=== PATIENT | female | born 1995 | race Caucasian/White ===

== ENCOUNTER 2024-10-11 19:58 | Emergency (ER) | payer BC, SELFPAY ==
--- NOTE | 2024-10-11 21:21 | RAD REPORT ---
EXAM: OB Limited HISTORY: Abd cramping, ;Vaginal bleeding COMPARISON: None TECHNIQUE: Multiple grayscale and color Doppler images were obtained in a transvaginal pelvic ultraso und. Spectral analysis of the Doppler waveforms of the ovaries were performed. FINDINGS: UTERUS: Single IUP identified transverse position. The placenta is anterior. Femur length measures 3 cm which is consistent with 19 week 2 day. Heart rate is measured at 1 40 bpm. The cervix is closed. Subjectively normal fluid. No free fluid is seen in the pelvis. RIGHT OVARY: Nonvisualized. LEFT OVARY: Nonvisualized. IMPRESSION: Single live intrauterine with estimated age of 19 week 2 day. Closed cervix.. S ubjectively normal fluid.
[2024-10-11 21:41] LABS: Absolute Eosinophils 0.1 K/uL (0-0.5); Absolute Lymphocytes (CBC) 2.2 K/uL (0.7-4.9); Absolute Monocytes 0.6 K/uL (0.1-1.3); Absolute Neutrophil 6.6 K/uL (1.8-8.0); Basophils % 0.4 % (0-1.3); Eosinophils % 0.9 % (0-4.4); Hemoglobin 11.8 g/dL (12.0-15.0); Lymphocytes % 22.9 % (15.3-44.8); MCH 31.7 pg (27.0-35.0); MCHC 35.9 g/dL (32.0-36.0); MCV 88.1 fL (80-100); MPV 7.3 fL (7.6-11.3); Monocytes % 6.3 % (3.3-12.3); Neutrophils % 69.5 % (41.7-73.7); Platelets 217 thou/uL (152-406); RBC Red Blood Cell Count 3.74 M/uL (3.86-4.86); Red Cell Distribution Width 12.9 % (12.1-15.2)
[2024-10-11 21:43] LABS: Specific Gravity 1.016 (1.005-1.030)
[2024-10-11 22:25] LABS: Anion Gap 10.3 mEq/L (5.0-15.0); Potassium 3.3 mEq/L (3.5-5.1)
[2024-10-11 22:40] LABS: Calcium Oxalate Crystals- Ur Few /HPF (None Seen); Specific Gravity 1.016 (1.005-1.030); Urine Bacteria <20 /HPF (<20); Urine Bilirubin NEGATIVE (Negative); Urine Blood 1+ (Negative); Urine Clarity Extremely Turbid (Clear); Urine Color Yellow (Yellow); Urine Culture Reflex Order REFLEXED; Urine Glucose NEGATIVE (Negative); Urine Ketones 1+ (Negative); Urine Microscopic Reflex YN ORDER UMIC; Urine Mucus 1+ /HPF (None Seen); Urine Nitrite NEGATIVE (Negative); Urine Protein NEGATIVE (Negative); Urine RBC 21-50 /HPF (None Seen); Urine Urobilinogen 1+ (Normal); Urine WBC None Seen /HPF (<5)
--- NOTE | 2024-10-11 22:48 | EDPHYS ---
Physician Documentation [facility] Name: Ilda Morris Age: 29 yrs Sex: Female : 1995 Arrival Date: 10/11/2024 Time: 19:58 Bed 16 Private MD: ED Physician Mor Patel HPI: 10/11 21:12 This 29 yrs old Female presents to ER via Ambulatory with complaints of EST 19 WKS sb4 GESTATION, SPOTTING VAGINALLY, Pelvic Pain. 21:13 The patient presents to the emergency department with abdominal pain, of the suprapubic sb4 area, that started today, described as crampy, vaginal bleeding, described as spotting. The estimated gestational age is 19 weeks. course: care: private OB physician, the patient's last check was October 07, 2024, Leakage of Fluid: none appreciated, Ultrasound: the patient had an ultrasound, which was normal, Risk/complications: no obvious risks or complications are appreciated. Previous pregnancies: in previous pregnancies patient has had , no complications. Associated signs and symptoms: The patient has no apparent associated signs or symptoms. The patient has not experienced similar symptoms in the past. The patient has not recently seen a physician. 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 - Infectious Disease History:: Denies. - Social history:: Smoking status: Patient denies any tobacco usage or history of. ROS: 21:13 Constitutional: Negative for fever, chills, and weight loss, sb4 21:13 : Positive for pelvic pain, vaginal bleeding, per HPI, 21:13 All other systems are negative, Exam: 21:13 Constitutional: This is a well developed, well nourished patient who is awake, alert, sb4 and in no acute distress. Head/Face: Normocephalic, atraumatic. Eyes: Extra-ocular motions intact. Periorbital areas with no swelling, redness, or edema. ENT: Mucous membranes moist. Cardiovascular: Regular rate and rhythm with a normal S1 and S2. Respiratory: No increased work of breathing, no retractions or nasal flaring. Abdomen/GI: Soft, non-tender, no distension. Skin: Warm, dry with normal turgor. Normal color with no rashes, no lesions, and no evidence of cellulitis. Vital Signs: 20:29 BP 110 / 78; Pulse 91; Resp 16; Temp 98.2; Pulse Ox 99% ; Weight 77.11 kg; Height 5 ft. dd2 5 in. ; Pain 6/10; 21:15 BP 103 / 68 LA (auto/reg); Pulse 82; Temp 98.6(O); Pulse Ox 100% on R/A; Weight 78.02 sa1 kg (M); Height 5 ft. 5 in. (R); 22:00 BP 110 / 65; Pulse 81; Resp 17; Pulse Ox 99% on R/A; Pain 0/10; rg5 21:15 Body Mass Index 28.62 (78.02 kg, 165.1 cm) sa1 20:29 Pain Scale: Adult dd2 22:00 Pain Scale: Adult rg5 MDM: 20:26 Medical Screening Exam initiated sb4 21:14 Differential diagnosis: threatened Ab, UTI. sb4 22:44 Data reviewed: vital signs, nurses notes, lab test result(s), radiologic studies, and sb4 as a result, I will discharge patient. Counseling: I had a detailed discussion with the patient and/or guardian regarding the historical points, exam findings, and any diagnostic results supporting the discharge/admit diagnosis, lab results, radiology results, the need for outpatient follow up, an OB/Gyne specialist, to return to the emergency department if symptoms worsen or persist or if there are any questions or concerns that arise at home. 10/11 20:32 Order name: Basic Metabolic Panel; Complete Time: 22:28 sb4 10/11 20:32 Order name: CBC with Diff; Complete Time: 21:43 sb4 10/11 20:32 Order name: Test, Urine; Complete Time: 21:49 sb4 10/11 20:32 Order name: Quantitative Hcg; Complete Time: 22:28 sb4 10/11 20:32 Order name: UA Rfx Kevin Cult if indicated; Complete Time: 22:41 sb4 10/11 22:44 Order name: Urine Culture EDMS 10/11 20:32 Order name: US OB Limited; Complete Time: 21:22 sb4 10/11 20:32 Order name: IV Saline Lock; Complete Time: 22:13 sb4 10/11 20:32 Order name: Labs collected and sent; Complete Time: 22:13 sb4 Administered Medications: No medications were administered Disposition: 10/12 04:50 Co-signature as Attending Physician, Mor Patel MD I agree with the assessment sp4 and plan of care. I reviewed the patient's care provided by the Advanced Practice Provider and agree with the diagnosis and treatment plan. Disposition Summary: 10/11/24 22:48 Discharge Ordered Notes: Location: Home sb4 Problem: new sb4 Symptoms: have improved sb4 Condition: Stable sb4 Diagnosis - Threatened sb4 - 19 weeks gestation of sb4 Followup: sb4 - With: Private Physician - When: 1 week - Reason: Recheck today's complaints, Re-evaluation by your physician Discharge Instructions: - Discharge Summary Sheet sb4 - Vaginal Bleeding During , Second Trimester, [id number] sb4 Forms: - Patient Portal Instructions sb4 - Leadership Thank You Letter sb4 Signatures: Dispatcher [employer] Lea Freeman PAErmiasC PAWong sb4 Mor Patel MD MD sp4 MONIKA KOROMA RN RN dd2 Corrections: (The following items were deleted from the chart) 10/11 20:32 20:32 BASIC METABOLIC PANEL+C.LAB.BRZ ordered. EDMS EDMS 20:32 20:32 CBC+H.LAB.BRZ ordered. EDMS EDMS 20:32 20:32 Test, Urine+UC.LAB.BRZ ordered. EDMS EDMS 20:32 20:32 QUANTITATIVE HCG+C.LAB.BRZ ordered. EDMS EDMS 20:32 20:32 UA Rfx Kevin Cult if indicated+U.LAB.BRZ ordered. EDMS EDMS 20:32 20:32 OB Limited+US.RAD.BRZ ordered. EDMS EDMS
--- NOTE | 2024-10-11 22:48 | ER ---
Nurse's Notes [facility] Name: Ilda Morris Age: 29 yrs Sex: Female : 1995 Arrival Date: 10/11/2024 Time: 19:58 Bed 16 Private MD: Diagnosis: Threatened ;19 weeks gestation of Presentation: 10/11 20:29 Chief complaint: Patient states: LOWER ABDOMINAL CRAMPING ALL DAY AND DARK RED SPOTTING dd2 THAT BEGAN 2 HOURS AGO. PT REPORTS SHE'S 19 WEEKS . STATES SHE WAS ADVISED BY OB TO COME TO ER. Coronavirus screen: At this time, the client does not indicate any symptoms associated with coronavirus-19. Ebola Screen: No symptoms or risks identified at this time. Initial Sepsis Screen: Does the patient meet any 2 criteria? No. Patient's initial sepsis screen is negative. Does the patient have a suspected source of infection? No. Patient's initial sepsis screen is negative. Risk Assessment: Do you want to hurt yourself or someone else? Patient reports no desire to harm self or others. Onset of symptoms was October 11, 2024. 20:29 Method Of Arrival: Ambulatory dd2 20:29 Acuity: DUNCAN 3 dd2 Triage Assessment: 20:31 General: Appears in no apparent distress. uncomfortable, Behavior is calm, cooperative, dd2 appropriate for age. Pain: Complains of pain in right lower quadrant and left lower quadrant Pain currently is 6 out of 10 on a pain scale. : Reports vaginal bleeding that is spotty. 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 - Infectious Disease History:: Denies. - Social history:: Smoking status: Patient denies any tobacco usage or history of. Screenin:00 [facility] ED Fall Risk Assessment (Adult) History of falling in the last 3 months, rg5 including since admission No falls in past 3 months (0 pts) Confusion or Disorientation No (0 pts) Intoxicated or Sedated No (0 pts) Impaired Gait No (0 pts) Mobility Assist Device Used No (0 pt) Altered Elimination No (0 pt) Score/Fall Risk Level 0 - 2 = Low Risk Oriented to surroundings, Maintained a safe environment, Hourly rounding (assess needs \T\ fall precautionary measures) done. Abuse screen: Denies threats or abuse. Nutritional screening: No deficits noted. Tuberculosis screening: No symptoms or risk factors identified. Assessment: 21:00 General: Appears in no apparent distress. comfortable, Behavior is calm, cooperative, rg5 appropriate for age. Pain: Denies pain. Vital Signs: 20:29 BP 110 / 78; Pulse 91; Resp 16; Temp 98.2; Pulse Ox 99% ; Weight 77.11 kg; Height 5 ft. dd2 5 in. ; Pain 6/10; 21:15 BP 103 / 68 LA (auto/reg); Pulse 82; Temp 98.6(O); Pulse Ox 100% on R/A; Weight 78.02 sa1 kg (M); Height 5 ft. 5 in. (R); 22:00 BP 110 / 65; Pulse 81; Resp 17; Pulse Ox 99% on R/A; Pain 0/10; rg5 21:15 Body Mass Index 28.62 (78.02 kg, 165.1 cm) sa1 20:29 Pain Scale: Adult dd2 22:00 Pain Scale: Adult rg5 ED Course: 20:00 Patient arrived in ED. jj6 20:01 Lea Mcgovern PA-C is PHCP. sb4 20:01 Mor Patel MD is Attending Physician. sb4 20:31 Triage completed. dd2 20:31 Arm band placed on right wrist. dd2 21:00 Patient has correct armband on for positive identification. Bed in low position. Call rg5 light in reach. Side rails up X 1. 21:00 Door closed. Noise minimized. rg5 21:00 Inserted saline lock: 20 gauge in left antecubital area, using aseptic technique. Blood rg5 collected. Flushed with 10 mL NS. 21:00 No provider procedures requiring assistance completed. rg5 21:02 Alexis Cotton, ESAU is Primary Nurse. rg5 21:06 US OB Limited In Process Unspecified. EDMS 23:00 Provided Education on: post er care done. rg5 23:00 IV discontinued, bleeding controlled, No redness/swelling at site. Pressure dressing rg5 applied. Administered Medications: No medications were administered Medication: 21:00 VIS not applicable for this client. rg5 Outcome: 22:48 Discharge ordered by . sb4 23:00 Discharged to home ambulatory, rg5 23:00 Condition: stable 23:00 Discharge instructions given to patient, family, Instructed on discharge instructions, rg5 follow up and referral plans. 23:10 Patient left the ED. rg5 Signatures: Dispatcher [employer] EDMS Lachelle Faustin Sophia, PA-C PA-C sb4 Alexis Cotton RN RN rg5 Sultan Josue sa1 MONIKA KOROMA RN RN dd2
[2024-10-11 23:36] VITALS: TEMP 98.6
[2024-10-11 23:38] VITALS: BP 110/65; O2SAT 99
== END 2024-10-11 23:10 | disposition home or self-care (01) ==
LOC: ER 19:58
DX: O20.0 Threatened abortion (principal); Z3A.19 19 weeks gestation of pregnancy
CPT/HCPCS: 36415; 76815; 80048; 81001; 81025; 84702; 85025; 87086; 87088; 99284